=== PATIENT | female | born 1945 | race Caucasian/White ===

== ENCOUNTER → 2017-01-08 | Outpatient (CLI) | payer OTHER ==
--- NOTE | 2017-01-10 00:17 | DI ---
XR T-SPINE 3VW,01/08/2017 12:38 PM: Clinical History: Back pain Previous Exam: None at this facility. Findings: AP, lateral and swimmer's views are obtained of the thoracic spine, and demonstrate S-shaped scoliosi s of the thoracolumbar spine. Postsurgical changes are seen consistent with vertebroplasty of the 10t h 11th and 12th thoracic vertebral bodies. The lungs are clear. Patient is status post bilateral total shoulder arthroplasty Impression: Diffuse degenerative changes and osteopenia as above with S-shaped scoliosis of the thoracolumbar spi ne.
--- NOTE | 2017-01-10 21:42 | DI ---
XR L-SPINE MIN 4 VW,01/08/2017 12:38 PM: Clinical History: Back pain Previous Exam: None at this facility. Findings: AP, lateral, flexion and extension views of the lumbar spine are obtained, and demonstrate grade 1 an terolisthesis of L4 on L5. Facet hypertrophy is noted. There is loss of intervertebral disc height at multiple levels. There is postsurgical change consistent with vertebral plasty at the T10, T11 and T12 levels. Postsurgical changes are seen consistent with a right total hip arthroplasty. Flexion and extension views reveal no instability. Impression: Diffuse degenerative changes with scoliosis and osteolysis.
== END ==
LOC: RAD 12:30
PROVIDERS: ATTEND Physician Assistant
DX: M54.5 Low back pain (principal); M54.6 Pain in thoracic spine; M47.816 Spondylosis without myelopathy or radiculopathy, lumbar region; M47.814 Spondylosis without myelopathy or radiculopathy, thoracic region; M89.58 Osteolysis, other site; Z98.890 Other specified postprocedural states
CPT/HCPCS: 72072; 72110